=== PATIENT | male | born 1975 | race African-American/Black ===

== ENCOUNTER 2024-06-06 13:43 | Inpatient (IN) | payer OTHER ==
[2024-06-06 14:57] VITALS: BMI 31.0
[2024-06-06] MEDS ORDERED: DICYCLOMINE HCL 10 MG CAPSULE PO PRN (15:26)
[2024-06-06] MEDS ORDERED: BISMUTH SUBSALICYLATE 524 MG/30 ML PO PRN (15:26)
[2024-06-06] MEDS ORDERED: BENZONATATE 200 MG CAPSULE PO PRN (15:26)
[2024-06-06] MEDS ORDERED: NALOXONE (NARCAN) HCL 4 MG/0.1 ML SPRAY NS PRN (15:26)
[2024-06-06] MEDS ORDERED: guaiFENesin 600 MG TABLET.ER (FP) PO PRN (15:26)
[2024-06-06] MEDS ORDERED: ONDANSETRON *ODT* 4 MG TABLET SL PRN (15:26)
[2024-06-06] MEDS ORDERED: IBUPROFEN 400 MG TABLET (FP) PO PRN (15:26)
[2024-06-06] MEDS ORDERED: NALOXONE (NYS OPIOID OVERDOSE PROGRAM) 4 MG/0.1 ML SPRAY NS PRN (15:26)
[2024-06-06] MEDS ORDERED: LOPERAMIDE HCL 2 MG CAPSULE PO PRN (15:26)
[2024-06-06] MEDS ORDERED: MAG HYDROX/AL HYDROX/SIMETH 30 ML UNIT-DOSE CUP PO PRN (15:26)
[2024-06-06] MEDS ORDERED: BENZOCAINE/MENTHOL (CHLORASEPTIC ) LOZENGE MM PRN (15:26)
[2024-06-06] MEDS ORDERED: NICOTINE POLACRILEX 4 MG GUM BUC PRN (15:26)
[2024-06-06] MEDS ORDERED: POLYETHYLENE GLYCOL (HEALTHYLAX) 3350 17 GM PACKET PO PRN (15:26)
[2024-06-06] MEDS ORDERED: chlordiazePOXIDE HCL 25 MG CAPSULE ONE (15:51)
[2024-06-06] MEDS: chlordiazePOXIDE HCL 25 MG CAPSULE PO SCH (15:59)
[2024-06-06] MEDS ORDERED: NICOTINE 21 MG/24 HOURS TOPICAL PATCH ONE (16:10)
[2024-06-06] MEDS ORDERED: PRENATAL VITAMINS W/ FOLIC ACID TABLET (FP) PO ONE (16:10)
[2024-06-06] MEDS: PRENATAL VITAMINS W/ FOLIC ACID TABLET (FP) PO SCH (16:15)
[2024-06-06] MEDS: NICOTINE 21 MG/24 HOURS TOPICAL PATCH TD SCH (16:15)
[2024-06-06] MEDS: chlordiazePOXIDE HCL 25 MG CAPSULE PO ONE (17:45)
[2024-06-06] MEDS: IBUPROFEN 600 MG TABLET (FP) PO PRN (18:18)
[2024-06-06] MEDS: METHOCARBAMOL 500 MG TABLET PO PRN (18:18)
[2024-06-06] MEDS: hydrOXYzine PAMOATE 25 MG CAPSULE (FP) PO PRN (22:20)
[2024-06-06] MEDS: MELATONIN 5 MG TABLETS PO SCH (22:20)
[2024-06-06] MEDS: THIAMINE 100 MG TABLET PO SCH (22:20)
[2024-06-06] MEDS: traZODone HCL 100 MG TABLET (FP) PO SCH (22:20)
[2024-06-06] MEDS: MAGNESIUM HYDROX 2400MG/30ML ORAL SUSPENSION 30 ML CUP PO PRN (22:24)
[2024-06-07 09:23] LABS: CHLORIDE 108 mmol/L (98-107); POTASSIUM 3.8 mmol/L (3.5-5.1); SODIUM 141 mmol/L (136-145)
[2024-06-07 09:31] LABS: ALBUMIN 3.1 g/dl (3.4-5.0); CALCIUM 8.4 mg/dL (8.5-10.1)
[2024-06-07 09:32] LABS: ANION GAP 6 mmol/L (4-13); BLOOD UREA NITROGEN 14.2 mg/dL (7-18); CO2 27 mmol/L (21-32); GLUCOSE,RANDOM 110 mg/dL (74-106)
[2024-06-07 09:35] LABS: CREATININE 1.1 mg/dL (0.55-1.3); SGOT/AST 13 U/L (15-37); SGPT/ALT 17 U/L (13-61)
[2024-06-07 09:36] LABS: BILIRUBIN,TOTAL 0.5 mg/dL (0.2-1); TOT PROT 6.5 g/dl (6.4-8.2)
[2024-06-07] MEDS: LOSARTAN POTASSIUM 25 MG TABLET PO SCH ×2 (09:36→11:18)
[2024-06-07 09:37] LABS: ALK PHOS 76 U/L (45-117); HEMATOCRIT 33.4 % (35.4-49); MCH 29.7 pg (25.7-33.7); MEAN PLT VOLUME 8.2 fl (7.5-11.1); PLATELET COUNT 189 10^3/uL (134-434); RBC 3.71 M/mm3 (4.00-5.60); RDW 17.1 % (11.9-15.9); WHITE BLOOD COUNT 4.3 K/mm3 (4.0-10.0)
[2024-06-07] MEDS: CARVEDILOL 25 MG TABLET (FP) PO SCH (11:21)
[2024-06-07] MEDS: GABAPENTIN 300 MG CAPSULE PO SCH (13:37)
[2024-06-07] MEDS: chlordiazePOXIDE HCL 25 MG CAPSULE PO PRN (13:38)
[2024-06-07] MEDS: cloNIDine HCL 0.1 MG TABLET PO ONE (19:05)
[2024-06-07] MEDS: QUEtiapine FUMARATE 50 MG TABLET PO SCH (22:33)
[2024-06-08] MEDS: chlordiazePOXIDE HCL 25 MG CAPSULE PO SCH (05:32)
[2024-06-08] MEDS ORDERED: PATIENT'S OWN MEDICATION (NON-FORMULARY) (Meloxicam [Meloxicam] 15 MG Tablet) PO SCH (10:00)
[2024-06-08] MEDS: LOSARTAN POTASSIUM 50 MG TABLET PO SCH (10:07)
[2024-06-08] MEDS: IBUPROFEN 600 MG TABLET (FP) PO PRN (10:11)
[2024-06-08] MEDS: DONEPEZIL HCL 5 MG TABLET (FP) PO SCH (13:27)
[2024-06-08] MEDS: METHOCARBAMOL 500 MG TABLET PO PRN (17:23)
[2024-06-08] MEDS: LOSARTAN POTASSIUM 50 MG TABLET PO ONE (17:42)
[2024-06-08] MEDS: ACETAMINOPHEN 325 MG TABLET (FP) PO PRN (22:13)
[2024-06-09] MEDS ORDERED: chlordiazePOXIDE HCL 10 MG CAPSULE PO PRN
[2024-06-09] MEDS: chlordiazePOXIDE HCL 10 MG CAPSULE PO SCH (05:34)
[2024-06-09] MEDS: BISACODYL 5 MG TABLET.DR (FP) PO ONE (12:34)
[2024-06-09] MEDS: METHOCARBAMOL 500 MG TABLET PO PRN (12:49)
[2024-06-09] MEDS: amLODIPine BESYLATE 5 MG TABLET (FP) PO SCH (12:49)
[2024-06-09] MEDS: hydrOXYzine PAMOATE 50 MG CAPSULE (FP) PO PRN (12:51)
[2024-06-09] MEDS: TETRAHYDROZOLINE HCL EYE DROPS OS PRN (12:55)
[2024-06-09] MEDS: ARTIFICIAL TEARS OPHTHALMIC DROPS OU SCH (12:55)
[2024-06-09] MEDS: amLODIPine BESYLATE 5 MG TABLET (FP) PO ONE (17:31)
[2024-06-10] MEDS: chlordiazePOXIDE HCL 10 MG CAPSULE PO SCH (05:35)
[2024-06-10] MEDS: amLODIPine BESYLATE 10 MG TABLET (FP) PO SCH (09:38)
[2024-06-10] MEDS: NAPROXEN 500 MG TABLET PO SCH (10:13)
[2024-06-10] MEDS ORDERED: QUEtiapine FUMARATE 50 MG TABLET PO SCH (11:14)
[2024-06-10] MEDS: hydrOXYzine PAMOATE 50 MG CAPSULE (FP) PO PRN (17:18)
[2024-06-10] MEDS: METOPROLOL TARTRATE 25 MG TABLET (FP) PO ONE (20:20)
[2024-06-10] MEDS: QUETIAPINE FUMARATE 200 MG, QUETIAPINE FUMARATE 50 MG PO SCH (21:39)
[2024-06-11] MEDS: chlordiazePOXIDE HCL 10 MG CAPSULE PO ONE (05:44)
[2024-06-11] MEDS: NIFEdipine E.R. 30 MG TABLET PO SCH (12:09)
[2024-06-11] MEDS: FLU VACCINE (FLULAVAL) PF 45 MCG/0.5 ML SYRINGE 2024-2025 IM ONE (12:10)
[2024-06-11] MEDS: PNEUMOC 20-VAL CONJ-DIP CRM/PF 0.5 ML SYRINGE IM ONE (12:11)
[2024-06-11 13:51] VITALS: BP 138/83; PULSE 85; RESP 20; TEMP 98.1
== END 2024-06-11 15:39 | disposition other institution (70) | DRG 775 ==
LOC: YASAS 13:43 → Y3N 16:09
PROVIDERS: ADMIT Allergy & Immunology; ATTEND Surgery
PROC: HZ2ZZZZ Detoxification Services for Substance Abuse Treatment (ICD-10-PCS; principal; 2024-06-06)
DX: F10.230 Alcohol dependence with withdrawal, uncomplicated (principal); F17.210 Nicotine dependence, cigarettes, uncomplicated; F10.27 Alcohol dependence with alcohol-induced persisting dementia; F41.9 Anxiety disorder, unspecified; I10 Essential (primary) hypertension; K52.9 Noninfective gastroenteritis and colitis, unspecified; M51.379 Other intervertebral disc degeneration, lumbosacral region without mention of lumbar back pain or lower extremity pain; M16.0 Bilateral primary osteoarthritis of hip; M54.50 Low back pain, unspecified; G89.29 Other chronic pain; Z87.19 Personal history of other diseases of the digestive system
CPT/HCPCS: 36415; 80053; 80305; 80307; 85027; 86780; 87811; 90656; 93005; 93010; G0008

== ENCOUNTER 2024-06-11 15:41 | Inpatient (IN) | payer OTHER ==
[2024-06-11] MEDS ORDERED: MAGNESIUM HYDROX 2400MG/30ML ORAL SUSPENSION 30 ML CUP PO PRN (16:02)
[2024-06-11] MEDS ORDERED: NALOXONE HCL 0.4 MG/ML VIAL IVPUSH PRN (16:02)
[2024-06-11] MEDS ORDERED: POLYETHYLENE GLYCOL (HEALTHYLAX) 3350 17 GM PACKET PO PRN (16:02)
[2024-06-11] MEDS ORDERED: IBUPROFEN 400 MG TABLET (FP) PO PRN (16:02)
[2024-06-11] MEDS ORDERED: BENZONATATE 200 MG CAPSULE PO PRN (16:02)
[2024-06-11] MEDS ORDERED: NICOTINE POLACRILEX 4 MG LOZENGE BC PRN (16:02)
[2024-06-11] MEDS ORDERED: NICOTINE POLACRILEX 4 MG GUM BUC PRN (16:02)
[2024-06-11] MEDS ORDERED: LOPERAMIDE HCL 2 MG CAPSULE PO PRN (16:02)
[2024-06-11] MEDS ORDERED: NALOXONE (NARCAN) HCL 4 MG/0.1 ML SPRAY NS PRN (16:02)
[2024-06-11] MEDS ORDERED: IBUPROFEN 600 MG TABLET (FP) PO PRN (16:02)
[2024-06-11] MEDS ORDERED: guaiFENesin 600 MG TABLET.ER (FP) PO PRN (16:02)
[2024-06-11] MEDS ORDERED: MAG HYDROX/AL HYDROX/SIMETH 30 ML UNIT-DOSE CUP PO PRN (16:02)
[2024-06-11] MEDS ORDERED: TETRAHYDROZOLINE HCL EYE DROPS OS PRN (16:14)
[2024-06-11] MEDS: hydrOXYzine PAMOATE 25 MG CAPSULE (FP) PO PRN (18:55)
[2024-06-11] MEDS: METHOCARBAMOL 500 MG TABLET PO PRN (18:55)
[2024-06-11] MEDS: ACETAMINOPHEN 325 MG TABLET (FP) PO PRN (18:55)
[2024-06-11] MEDS: GABAPENTIN 300 MG CAPSULE PO SCH (21:36)
[2024-06-11] MEDS: THIAMINE 100 MG TABLET PO SCH (21:36)
[2024-06-11] MEDS: QUETIAPINE FUMARATE 200 MG, QUETIAPINE FUMARATE 50 MG PO SCH (21:36)
[2024-06-11] MEDS: NAPROXEN 500 MG TABLET PO SCH (21:36)
[2024-06-11] MEDS: MELATONIN 5 MG TABLETS PO SCH (21:37)
[2024-06-11] MEDS ORDERED: CARVEDILOL 25 MG TABLET (FP) PO SCH (22:00)
[2024-06-11] MEDS ORDERED: QUEtiapine FUMARATE 300 MG TABLET PO SCH (22:00)
[2024-06-11] MEDS: CARVEDILOL 25 MG TABLET (FP) PO SCH (22:24)
[2024-06-12] MEDS: NICOTINE 14 MG/24 HOURS TOPICAL PATCH TD PRN (06:16)
[2024-06-12] MEDS: LOSARTAN POTASSIUM 50 MG TABLET PO SCH (09:03)
[2024-06-12] MEDS: PRENATAL VITAMINS W/ FOLIC ACID TABLET (FP) PO SCH (09:03)
[2024-06-12] MEDS ORDERED: PATIENT'S OWN MEDICATION (NON-FORMULARY) (Losartan Potassium [Cozaar] 100 MG Tablet) PO SCH (10:00)
[2024-06-12] MEDS ORDERED: NIFEdipine E.R. 30 MG TABLET PO SCH (10:00)
[2024-06-12] MEDS: NIFEdipine E.R. 30 MG TABLET PO SCH (10:27)
[2024-06-12] MEDS: DONEPEZIL HCL 5 MG TABLET (FP) PO SCH (10:27)
[2024-06-12] MEDS ORDERED: LACTULOSE 20 GM/30 ML UDC (FOR ORAL USE ONLY) PO PRN (12:08)
[2024-06-12] MEDS: OXYBUTYNIN CHLORIDE 5 MG TABLET PO SCH (12:37)
[2024-06-12] MEDS: HYDROCORTISONE 2.5% TOPICAL CREAM 30 GM TUBE RC SCH (12:37)
[2024-06-12] MEDS: DOCUSATE SODIUM 100 MG CAPSULE (FP) PO SCH (12:38)
[2024-06-12] MEDS: GABAPENTIN 300 MG CAPSULE PO SCH (13:12)
[2024-06-12] MEDS ORDERED: [UNRECOGNIZED DRUG - OTHER] OU SCH (18:00)
[2024-06-12] MEDS ORDERED: GLYCERIN OU SCH (18:00)
[2024-06-12] MEDS ORDERED: CARBOXYMETHYLCELL OU SCH (18:00)
[2024-06-12] MEDS: ARTIFICIAL TEARS OPHTHALMIC DROPS OU SCH (21:44)
[2024-06-12] MEDS: QUEtiapine FUMARATE 300 MG TABLET PO SCH (21:44)
[2024-06-12] MEDS: IBUPROFEN 600 MG TABLET (FP) PO PRN (21:44)
[2024-06-13 11:31] LABS: INR 0.96 (0.83-1.09); PROTHROMBIN TIME (PATIENT) 10.9 SEC (9.7-13.0)
[2024-06-13] MEDS: LACTULOSE 20 GM/30 ML UDC (FOR ORAL USE ONLY) PO SCH (14:37)
[2024-06-14] MEDS: ACETAMINOPHEN 325 MG TABLET (FP) PO PRN (13:57)
[2024-06-14] MEDS ORDERED: QUEtiapine FUMARATE 100 MG TABLET (FP) ONE (19:52)
[2024-06-15] MEDS: ARTIFICIAL TEARS OPHTHALMIC DROPS OU PRN (06:29)
[2024-06-15] MEDS: BENZOCAINE/MENTHOL (CHLORASEPTIC ) LOZENGE MM PRN (10:10)
[2024-06-15] MEDS ORDERED: QUEtiapine FUMARATE 100 MG TABLET (FP) ONE (19:22)
[2024-06-16] MEDS: CHOLECALCIFEROL (VIT D3) 400 UNIT (10 MCG) TABLET PO SCH (13:48)
[2024-06-16] MEDS: NAPROXEN 500 MG TABLET PO SCH (13:48)
[2024-06-16] MEDS: GABAPENTIN 300 MG CAPSULE PO SCH (13:48)
[2024-06-16] MEDS: hydrOXYzine PAMOATE 25 MG CAPSULE (FP) PO PRN (14:43)
[2024-06-16] MEDS ORDERED: QUEtiapine FUMARATE 100 MG TABLET (FP) ONE (20:28)
[2024-06-16] MEDS: SUVOREXANT 5 MG TABLET PO PRN (21:52)
[2024-06-16] MEDS: HYPROMELLOSE OU SCH (21:55)
[2024-06-16] MEDS: DEXTRAN OU SCH (21:55)
[2024-06-16] MEDS: GLYCERIN OU SCH (21:55)
[2024-06-18] MEDS: SODIUM CHLORIDE NASAL SPRAY 44 ML BOTTLE NS PRN (06:41)
[2024-06-18] MEDS ORDERED: QUEtiapine FUMARATE 100 MG TABLET (FP) ONE (19:42)
[2024-06-19] MEDS ORDERED: QUEtiapine FUMARATE 100 MG TABLET (FP) ONE (21:14)
[2024-06-20] MEDS ORDERED: QUEtiapine FUMARATE 100 MG TABLET (FP) ONE (21:52)
[2024-06-20] MEDS: METHOCARBAMOL 500 MG TABLET PO SCH (21:53)
[2024-06-21] MEDS: OXYBUTYNIN CHLORIDE 5 MG TABLET PO SCH (10:20)
[2024-06-21] MEDS ORDERED: SUVOREXANT 10 MG TABLET PO PRN (22:00)
[2024-06-22] MEDS ORDERED: QUEtiapine FUMARATE 100 MG TABLET (FP) ONE (20:20)
[2024-06-23] MEDS: SUVOREXANT 5 MG TABLET PO PRN (22:04)
[2024-06-24] MEDS ORDERED: QUEtiapine FUMARATE 100 MG TABLET (FP) ONE (21:02)
[2024-06-24] MEDS: SUVOREXANT 5 MG TABLET PO PRN (21:18)
[2024-06-25 06:20] VITALS: TEMP 97.1
[2024-06-25 09:06] VITALS: PULSE 103; RESP 17
[2024-06-25 09:13] VITALS: BP 151/96
[2024-06-25] MEDS: NALOXONE (NYS OPIOID OVERDOSE PROGRAM) 4 MG/0.1 ML SPRAY NS SCH (09:40)
== END 2024-06-25 09:43 | disposition home or self-care (01) | DRG 772 ==
LOC: YASAS 15:41 → Y3E 15:46 → Y3W 06-18 13:30
PROVIDERS: ADMIT Psychiatry & Neurology Pain Medicine; ATTEND Psychiatry & Neurology Pain Medicine
PROC: HZ42ZZZ Group Counseling for Substance Abuse Treatment, Cognitive-Behavioral (ICD-10-PCS; principal; 2024-06-11)
DX: F10.20 Alcohol dependence, uncomplicated (principal); F14.20 Cocaine dependence, uncomplicated; F17.210 Nicotine dependence, cigarettes, uncomplicated; F03.90 Unspecified dementia, unspecified severity, without behavioral disturbance, psychotic disturbance, mood disturbance, and anxiety; F41.9 Anxiety disorder, unspecified; E72.20 Disorder of urea cycle metabolism, unspecified; H54.62 Unqualified visual loss, left eye, normal vision right eye; M51.379 Other intervertebral disc degeneration, lumbosacral region without mention of lumbar back pain or lower extremity pain; M54.50 Low back pain, unspecified; G89.29 Other chronic pain; M16.0 Bilateral primary osteoarthritis of hip; R09.81 Nasal congestion; Z87.19 Personal history of other diseases of the digestive system
CPT/HCPCS: 36415; 82140; 82652; 83036; 83735; 85610; 86803